=== PATIENT | male | born 1960 | race Caucasian/White ===

== ENCOUNTER 2017-03-27 15:09 | Emergency (ER) | payer BC ==
[2017-03-27 15:18] VITALS: BP 123/88
--- NOTE | 2017-03-27 15:29 | UC ---
Abdominal Pain Male HPI - HPI Summary HPI Summary: 56 YEAR OLD MALE WITH A HISTORY OF DIVERTICULITIS PRESENTS WITH COMPLAINS OF SEVERE LLQ PAIN, FEVER AND CHILLS. - History of Current Complaint Chief Complaint: UCGI Stated Complaint: STOMACH COMPLAINT Time Seen by Provider: 03/27/17 15:24 Hx Obtained From: Patient Onset/Duration: Sudden Onset Severity Initially: Moderate Severity Currently: Moderate Pain Scale Used: 0-10 Numeric - 5 Location: Discrete At: LLQ - Allergies/Home Medications Allergies/Adverse Reactions: Allergies Allergy/AdvReac Type Severity Reaction Status Date / Time No Known Allergies Allergy Verified 03/27/17 15:18 PMH/Surg Hx/FS Hx/Imm Hx Previously Healthy: Yes - Surgical History Surgical History: Yes Surgery Procedure, Year, and Place: back surgery 8 yrs ago - Social History Alcohol Use: Occasionally Substance Use Type: None Smoking Status (MU): Never Smoked Tobacco Review of Systems Constitutional: Negative Skin: Negative Eyes: Negative ENT: Negative Respiratory: Negative Cardiovascular: Negative Gastrointestinal: Abdominal Pain, Other - LLQ PAIN Genitourinary: Negative Motor: Negative Neurovascular: Negative Musculoskeletal: Negative Neurological: Negative Psychological: Negative All Other Systems Reviewed And Are Negative: Yes Physical Exam Triage Information Reviewed: Yes Vital Signs: Initial Vital Signs Temp 37.6 C 03/27/17 15:15 Pulse 98 03/27/17 15:15 Resp 18 03/27/17 15:15 BP 123/88 03/27/17 15:15 Pulse Ox 99 03/27/17 15:15 Vital Signs Reviewed: Yes Eye Exam: Normal ENT Exam: Normal Dental Exam: Normal Neck exam: Normal Neck: Positive: 1 Respiratory Exam: Normal Cardiovascular Exam: Normal Abdomen Description: Positive: Other: - LLQ PAIN Musculoskeletal Exam: Normal Neurological Exam: Normal Psychological Exam: Normal Skin Exam: Normal Abd Pain Male Course/Dx - Differential Dx/Clinical Impression Provider Diagnoses: LLQ PAIN Discharge - Discharge Plan Condition: Stable Disposition: HOME Patient Education Materials: Diverticulitis (ED) Referrals: Donaldo Wick MD [Primary Care Provider] - Additional Instructions: PATIENT SUGGESTED TO GO TO ER TO RULE OUT DIVERTICULITIS/COLITIS
== END 2017-03-27 15:36 | disposition home or self-care (01) ==
LOC: UCEAST 15:09
DX: R10.32 Left lower quadrant pain (principal)
CPT/HCPCS: 99211; G0463

== ENCOUNTER 2017-03-27 16:00 | Emergency (ER) | payer BC ==
[2017-03-27 16:50] LABS: Hematocrit 49 % (42-52); Hemoglobin 16.6 g/dl (14.0-18.0); Mean Corpuscular HGB Conc 34 g/dl (31-36); Mean Corpuscular Hemoglobin 30 pg (27-31); Mean Corpuscular Volume 89 fL (80-94); Mean Platelet Volume 7 um3 (7.4-10.4); Red Blood Count 5.53 10^6/ul (4.0-5.4); Red Cell Distribution Width 13 % (10.5-15); White Blood Count 13.1 10^3/ul (3.5-10.8)
[2017-03-27 17:13] LABS: Albumin 4.6 g/dL (3.2-5.2); BUN/Creatinine Ratio 16.3 (8-20); Calcium 9.8 mg/dL (8.6-10.3); EGFR African American 118.3 (>60); Potassium 3.8 mmol/L (3.5-5.0); Total Bilirubin 1.1 mg/dL (0.2-1.0); Total Protein 7.6 g/dL (6.4-8.9)
[2017-03-27] MEDS ORDERED: Ondansetron INJ* 2 MG/ML VIAL ONE (17:42)
[2017-03-27] MEDS: NS 0.9% 1000 ML* 2,000 ML IV ONE ×2 (17:45→17:46)
[2017-03-27] MEDS ORDERED: Ondansetron INJ* 2 MG/ML VIAL IV ONE ×2 (17:45→17:57)
[2017-03-27] MEDS ORDERED: Morphine INJ* 4 MG/ML 1 ML CARPUJECT IV ONE (17:51)
[2017-03-27] MEDS ORDERED: Iohexol 300* (CONTRAST) 10 ML SDV IV ONE (18:10)
--- NOTE | 2017-03-27 18:55 | RAD ---
INDICATION: Left lower quadrant pain COMPARISON: February 01, 2013 TECHNIQUE: Axial source images were obtained from the hemidiaphragms to the symphysis pubis following administration of oral and intravenous contrast. 121 mL Omnipaque 300 was utilized. Coronal and sagittal reconstructed images were acquired. Lung bases: The lung bases are clear. Liver: The liver is normal in size. There is mild hepatic steatosis There are no masses. There is no ductal dilatation. Gallbladder: There are no calcified gallstones. There is no evidence of wall thickening or pericholecystic fluid. Spleen: The spleen is normal in size. There are no masses. Pancreas: There is no focal pancreatic mass or ductal dilatation. Adrenal glands: There is no evidence of adrenal mass. Kidneys: The kidneys are normal in size and position. There are prompt nephrograms and there is prompt excretion bilaterally. There are no renal parenchymal masses. There is no evidence of nephrolithiasis. Adenopathy: There is no evidence of adenopathy by size criteria. Fluid collections: There are no free or localized fluid collections. Vessels:There are no significant atherosclerotic changes involving the aorta. There is no focal aneurysm. The iliac vessels are normal in caliber. The IVC appears normal. GI tract: The upper GI tract is unremarkable. There is perienteric inflammatory change with mesenteric stranding and bowel wall thickening of the sigmoid colon. There are scattered diverticula. The CT findings are compatible with acute diverticulitis. There are no findings of obstruction or perforation. The appendix is normal. Pelvic organs: The prostate is mildly enlarged. Bladder: There are no bladder masses. Abdominal and pelvic soft tissues: The extraperitoneal abdominal and pelvic soft tissues appear normal.. Osseous structures: There are no acute osseous findings. Other: None IMPRESSION: CT FINDINGS OF MILD ACUTE DIVERTICULITIS OF THE SIGMOID COLON
[2017-03-27] MEDS ORDERED: Amoxicillin/Clavulanate TAB* 875 MG PO ONE (19:01)
--- NOTE | 2017-03-27 19:02 | ED ---
Kush Barrientos Angela, scribed for Donaldo Lucero MD on 03/27/17 at 1630 . Abdominal Pain/Male - HPI Summary HPI Summary: This pt is a 56 y/o male presenting to [facility] c/o intermittent LLQ abd pain x4 days. Pt notes his pain is similar to prior episode of diverticulitis. On the first day pt had diarrhea. His pain is rated 1 out of 10 in severity and is described in wave, once every hour that lasts for 5-10 seconds. Pt's pain is aggravated after eating. Pt has associated symptoms of nausea and chills. Pt denies bloody stools, vomiting, back pain, fever. PMHx: diverticulitis, high cholesterol. Pt takes Lipitor. - History of Current Complaint Chief Complaint: EDAbdPain Stated Complaint: ABD PAIN-SENT FROM Time Seen by Provider: 03/27/17 16:24 Hx Obtained From: Patient Onset/Duration: Lasting Days Timing: Intermittent, Lasting Seconds - 5-10 seconds Pain Intensity: 1 Pain Scale Used: 0-10 Numeric Location: Discrete At: LLQ Radiates: No Aggravating Factor(s): Food Alleviating Factor(s): Nothing Associated Signs And Symptoms: Positive: Nausea, Diarrhea - 3 days ago. Negative: Diaphoresis, Chest Pain, Dizzy, Back Pain, Constipation, Blood in Stool, Decreased Appetite - Allergies/Home Medications Allergies/Adverse Reactions: Allergies Allergy/AdvReac Type Severity Reaction Status Date / Time No Known Allergies Allergy Verified 03/27/17 15:18 Home Medications: Home Medications Atorvastatin* [Lipitor*] 40 mg PO DAILY 03/27/17 [History Confirmed 03/27/17] PMH/Surg Hx/FS Hx/Imm Hx Endocrine/Hematology History: Denies: Hx Diabetes Cardiovascular History: Reports: Hx Hypercholesterolemia Denies: Hx Congestive Heart Failure, Hx Hypertension GI History: Reports: Other GI Disorders - hiatial hernia, diverticulitis - Surgical History Surgery Procedure, Year, and Place: back surgery 8 yrs ago Infectious Disease History: Denies: Traveled Outside the [place] in Last 30 Days - Family History Known Family History: Negative: Respiratory Disease - Social History Occupation: Employed Full-time - post office Alcohol Use: Occasionally Substance Use Type: Reports: None Smoking Status (MU): Never Smoked Tobacco Review of Systems Positive: Chills. Negative: Fever Eyes: Negative ENT: Negative Negative: Palpitations, Chest Pain Negative: Shortness Of Breath Positive: Abdominal Pain - LLQ, Diarrhea - 3 days ago, now resolved, Nausea. Negative: Vomiting Genitourinary: Negative Musculoskeletal: Negative Skin: Negative Neurological: Negative All Other Systems Reviewed And Are Negative: Yes Physical Exam Triage Information Reviewed: Yes Vital Signs On Initial Exam: Initial Vitals Temp Pulse Resp BP Pulse Ox 99.5 F 91 18 144/74 96 03/27/17 16:03 03/27/17 16:03 03/27/17 16:03 03/27/17 16:03 03/27/17 16:03 Vital Signs Reviewed: Yes Appearance: Positive: Well-Appearing, No Pain Distress Skin: Positive: Warm, Skin Color Reflects Adequate Perfusion Eyes: Positive: Normal, EOMI Neck: Positive: Nontender Respiratory/Lung Sounds: Positive: Clear to Auscultation, Breath Sounds Present Cardiovascular: Positive: RRR. Negative: Murmur Abdomen Description: Positive: Other: - tender in the left lower abdomen Male Genital Exam: Positive: no hernia Neurological: Positive: Normal, Sensory/Motor Intact, Alert, Oriented to Person Place, Time, CN Intact II-III Psychiatric: Positive: Normal Diagnostics - Vital Signs Vital Signs Temp Pulse Resp BP Pulse Ox 03/27/17 16:18 98.7 F 94 20 154/81 96 03/27/17 16:03 99.5 F 91 18 144/74 96 - Laboratory Lab Results: Lab Results 03/27/17 03/27/17 03/27/17 Range/Units 16:41 16:41 16:41 WBC 13.1 H (3.5-10.8) 10^3/ul RBC 5.53 H (4.0-5.4) 10^6/ul Hgb 16.6 (14.0-18.0) g/dl Hct 49 (42-52) % MCV 89 (80-94) fL MCH 30 (27-31) pg MCHC 34 (31-36) g/dl RDW 13 (10.5-15) % Plt Count 206 (150-450) 10^3/ul MPV 7 L (7.4-10.4) um3 Neut % (Auto) 75.0 (38-83) % Lymph % (Auto) 13.1 L (25-47) % [place] % (Auto) 10.9 H (1-9) % Eos % (Auto) 0.4 (0-6) % Baso % (Auto) 0.6 (0-2) % Absolute Neuts (auto) 9.8 H (1.5-7.7) 10^3/ul Absolute Lymphs (auto) 1.7 (1.0-4.8) 10^3/ul Absolute Monos (auto) 1.4 H (0-0.8) 10^3/ul Absolute Eos (auto) 0 (0-0.6) 10^3/ul Absolute Basos (auto) 0.1 (0-0.2) 10^3/ul Absolute Nucleated RBC 0 10^3/ul Nucleated RBC % 0 Sodium 137 (133-145) mmol/L Potassium 3.8 (3.5-5.0) mmol/L Chloride 102 (101-111) mmol/L Carbon Dioxide 27 (22-32) mmol/L Anion Gap 8 (2-11) mmol/L BUN 14 (6-24) mg/dL Creatinine 0.86 (0.67-1.17) mg/dL Est GFR ( Amer) 118.3 (>60) Est GFR (Non-Af Amer) 92.0 (>60) BUN/Creatinine Ratio 16.3 (8-20) Glucose 95 (70-100) mg/dL Lactic Acid 1.0 (0.5-2.0) mmol/L Calcium 9.8 (8.6-10.3) mg/dL Total Bilirubin 1.10 H (0.2-1.0) mg/dL AST 20 (13-39) U/L ALT 28 (7-52) U/L Alkaline Phosphatase 87 (34-104) U/L Total Protein 7.6 (6.4-8.9) g/dL Albumin 4.6 (3.2-5.2) g/dL Globulin 3.0 (2-4) g/dL Albumin/Globulin Ratio 1.5 (1-3) Lipase 13 (11.0-82.0) U/L Result Diagrams: 03/27/17 16:41 03/27/17 16:41 Lab Statement: Any lab studies that have been ordered have been reviewed, and results considered in the medical decision making process. - CT Abd/Pel CT CT Interpretation: Positive (See Comments) - IMPRESSION: CT findings of mild acute diverticulitis of the sigmoid colon. ED physician has reviewed this radiology report and agrees. CT Interpretation Completed By: Radiologist Re-Evaluation - Re-Evaluation First Eval Re-Evaluation Time: 18:59 Change: Improved Comment: Patient reports he is comfortable and would like to go home. WIll DC on Augmentin. He will follow up with his PMD.Return for worsening symptoms. Abdominal Pain Fem Course/Dx - Course Course Of Treatment: 56 yr old with prior diverticulitis. Will get CT and labs. CT shows findings of mild acute diverticulitis of the sigmoid colon. - Diagnoses Provider Diagnoses: Diverticulitis Discharge - Discharge Plan Condition: Good Disposition: HOME Prescriptions: Amoxicillin/Clavulanate TAB* [Augmentin TAB 875*] 875 mg PO BID #20 tab Patient Education Materials: Diverticulitis (ED) Referrals: Donaldo Wick MD [Primary Care Provider] - The documentation as recorded by the Kush worley Angela accurately reflects the service I personally performed and the decisions made by , Donaldo Lucero MD.
[2017-03-27 19:10] LABS: Urine Bilirubin Negative (Negative); Urine Glucose Negative (Negative); Urine Nitrite Negative (Negative)
[2017-03-27 19:27] VITALS: BP 135/68
== END 2017-03-27 19:26 | disposition home or self-care (01) ==
LOC: ED 16:00
DX: K57.92 Diverticulitis of intestine, part unspecified, without perforation or abscess without bleeding (principal); R10.32 Left lower quadrant pain; R11.0 Nausea; R19.7 Diarrhea, unspecified
CPT/HCPCS: 36415; 74177; 80053; 81003; 83605; 83690; 85025; 96361; 96374; 99285; A9270-GY; J2270; J2405; Q9967

== ENCOUNTER 2022-09-27 06:26 | Inpatient (IN) ==
[~2022-09-27 06:26] MED LIST: Buffered Lidocaine 1% SYRIN 1 ml INTRADERM ONE; Lactated Ringers 1000 ml BAG 1,000 ML IV SCH
[2022-09-27] MEDS ORDERED: ceFAZolin 2 GM PREMIX 2 GM/50 ML BAG ONE (07:12)
[2022-09-27] MEDS ORDERED: Midazolam 2 mg/2 ml VIAL 1 mg/ml 2 ml VIAL (2 mg) ONE (08:07)
[2022-09-27] MEDS ORDERED: Lidocaine 2% PF 5 ML VIAL ONE (08:07)
[2022-09-27] MEDS ORDERED: Ondansetron 4 mg VIAL 2 MG/ML 2 ml VIAL IV PRN ×2 (08:45→09:46)
[2022-09-27] MEDS ORDERED: Naloxone 0.4 mg VIAL 0.4 mg/ml 1 ml VIAL IV PRN (08:45)
[2022-09-27] MEDS ORDERED: fentaNYL 100 mcg/2 ml 50 MCG/ML VIAL IV PRN (08:45)
[2022-09-27] MEDS ORDERED: Lactulose 30 ml UDC PO PRN (09:46)
[2022-09-27] MEDS ORDERED: Magnesium Hydroxide LIQ 30 ML UDC PO PRN (09:46)
[2022-09-27] MEDS ORDERED: Morphine 2 MG/ML SYRINGE IV PRN (09:46)
[2022-09-27] MEDS ORDERED: Ondansetron ODT 4 mg TAB 4 MG TAB PO PRN (09:46)
[2022-09-27] MEDS ORDERED: Dexamethasone IV 4 MG/ML VIAL 1 ml VIAL ONE (10:51)
[2022-09-27] MEDS ORDERED: Ondansetron 4 mg VIAL 2 MG/ML 2 ml VIAL ONE (10:51)
[2022-09-27] MEDS ORDERED: Propofol 10 MG/ML 20 ML BTL ONE (10:54)
[2022-09-27] MEDS ORDERED: Bupivacaine 0.5% 50 ML MDV VIAL ONE (12:00)
[2022-09-27] MEDS: Lactated Ringers 1000 ml BAG 1,000 ML IV SCH ×2 (14:00→23:51)
[2022-09-27] MEDS: ceFAZolin 1 GM ADVAN 1 GM in NS 0.9% 50 ML 50 ML IVPB SCH (17:59)
[2022-09-27] MEDS: Magnesium Hydroxide LIQ 30 ML UDC PO SCH (20:42)
[2022-09-28] MEDS: ceFAZolin 1 GM ADVAN 1 GM in NS 0.9% 50 ML 50 ML IVPB SCH ×2 (01:31→10:28)
[2022-09-28 06:32] LABS: Hematocrit 38 % (42-52); Hemoglobin 12.8 g/dL (14.0-18.0); Mean Platelet Volume 6.8 fL (7.4-10.4); Platelet Count 183 10^3/uL (150-450)
[2022-09-28 06:49] LABS: Calcium 8.2 mg/dL (8.6-10.3); Creatinine, Serum 0.98 mg/dL (0.67-1.17); Potassium 4.5 mmol/L (3.5-5.0); eGFR CKD-EPI 87.7 (>60)
[2022-09-28] MEDS: Magnesium Hydroxide LIQ 30 ML UDC PO SCH (08:17)
[2022-09-28] MEDS ORDERED: Vitamin THERAPEUTIC TAB PO SCH (09:00)
[2022-09-28 12:41] VITALS: BP 107/57
== END 2022-09-28 15:05 | disposition home or self-care (01) | DRG 301 ==
LOC: AA 06:26 → INTOOBSV 06:26 → SSU 13:58
PROVIDERS: ADMIT Orthopaedic Surgery Adult Reconstructive Orthopaedic Surgery; ATTEND Orthopaedic Surgery Adult Reconstructive Orthopaedic Surgery